=== PATIENT | male | born 1980 | race Caucasian/White ===

== ENCOUNTER → 2022-11-12 12:16 | Outpatient (CLI) | payer BC, SELFPAY ==
[2022-11-12 13:34] LABS: Hematocrit 46.2 % (41-53); Hemoglobin 16.1 g/dL (13.5-17.5); Mean Corpuscular HGB Conc 34.8 % (30-36); Mean Corpuscular Hemoglobin 30.3 PG (26-34); Platelet Count 292 X10^3/uL (150-400); Red Blood Cell Count 5.31 X10^6/uL (4.5-5.9); Red Cell Distribution Width 14.3 % (11.6-14.8); White Blood Cell Count 11.3 X10^3/uL (4.5-11.0)
[2022-11-12 13:41] LABS: Alanine Aminotransferase 44 IU/L (<50); Albumin 4.7 g/dL (3.5-5.0); Albumin Globulin Ratio 1.4 (1.0-2.8); Alkaline Phosphatase 94 U/L (38-126); Aspartate Aminotransferase 35 IU/L (17-59); BUN Creatinine Ratio 19.6 (6-22); Bilirubin Total 0.8 mg/dL (0.2-1.3); Blood Urea Nitrogen 19 mg/dL (9-20); Calcium 9.4 mg/dL (8.4-10.2); Carbon Dioxide 26 mmol/L (22-32); Chloride 102 mmol/L (98-107); Cholesterol 223 mg/dL (140-199); Estimated Glomerular Filt Rate > 60 mL/min (>60); Globulin 3.3 g/dL (1.7-4.1); Glucose 105 mg/dL (70-100); HDL Cholesterol 56 mg/dL (40-60); HEMOLYSIS < 15 (0-50); LDL Cholesterol Calculated 130 mg/dL (<100); Potassium 4.3 mmol/L (3.4-5.1); Sodium 136 mmol/L (137-145); Triglycerides 187 mg/dL (35-150)
[2022-11-12 13:45] LABS: High Sensitivity CRP - Cardiac 3.1 mg/L (1.0-3.0)
[2022-11-12 13:50] LABS: Neutrophils Absolute Manual 8362 /uL (3000-5900); Total Cells Counted 100
[2022-11-12 13:51] LABS: RBC Morphology Normal Morphology
== END ==
PROVIDERS: PCP Pediatrics; Referring Provider Pediatrics; Visit Provider Pediatrics
DX: E78.5 Hyperlipidemia, unspecified (principal); F41.9 Anxiety disorder, unspecified; R00.0 Tachycardia, unspecified; E78.00 Pure hypercholesterolemia, unspecified
CPT/HCPCS: 36415; 80053; 80061; 84443; 85025; 86140

== ENCOUNTER → 2023-05-02 14:15 | Outpatient (CLI) | payer BC, SELFPAY | PROVIDERS: PCP Pediatrics; Referring Provider Physician Assistant; Visit Provider Physician Assistant | DX: R06.2 Wheezing (principal); Z87.891 Personal history of nicotine dependence; J98.8 Other specified respiratory disorders | CPT/HCPCS: 94060; 94726; 94729 ==

== ENCOUNTER → 2023-05-16 13:40 | Outpatient (CLI) | payer BC, SELFPAY ==
--- NOTE | 2023-05-16 13:55 | DI.RAD.S_ITS ---
PROCEDURE: XR CHEST 2V INDICATIONS: eval former smoker TECHNIQUE: 2 views of the chest were acquired. COMPARISON: None. FINDINGS: Surgical changes and devices: None. Lungs and pleura: Lungs are clear. No pleural effusions or pneumothorax. Mediastinum: Mediastinal contours are normal. Heart size is normal. Bones and chest wall: No suspicious bony abnormalities. Soft tissues appear unremarkable. IMPRESSION: No acute cardiopulmonary abnormality is seen. Dictated by: Aracelis Reich M.D. on 05/16/2023 at 22:10 Approved by: Aracelis Reich M.D. on 05/16/2023 at 22:10
[2023-05-16 14:40] LABS: Add Manual Diff / Slide Review NO; Basophils Absolute Auto 0 /uL (0-100); Basophils Percent Auto 0.7 % (0-2); Eosinophils Absolute Auto 200 /uL (0-450); Eosinophils Percent Auto 3.4 % (2-4); Hematocrit 43.7 % (41-53); Hemoglobin 14.8 g/dL (13.5-17.5); Lymphocytes Absolute Auto 1900 /uL (1100-4500); Lymphocytes Percent Auto 28.3 % (25-40); Mean Corpuscular Hemoglobin 29.8 PG (26-34); Mean Corpuscular Volume 87.7 fL (80-100); Monocytes Absolute Auto 500 /uL (0-900); Monocytes Percent Auto 7.8 % (3-14); Neutrophils Absolute Auto 4000 /uL (1500-7000); Neutrophils Percent Auto 59.8 % (50-75); Platelet Count 255 X10^3/uL (150-400); Red Blood Cell Count 4.98 X10^6/uL (4.5-5.9); Red Cell Distribution Width 13.5 % (11.6-14.8); White Blood Cell Count 6.7 X10^3/uL (4.5-11.0)
[2023-05-16 15:08] LABS: Alanine Aminotransferase 47 IU/L (<50); Albumin 4.4 g/dL (3.5-5.0); Albumin Globulin Ratio 1.5 (1.0-2.8); Alkaline Phosphatase 78 U/L (38-126); Aspartate Aminotransferase 30 IU/L (17-59); BUN Creatinine Ratio 19.3 (6-22); Bilirubin Total 0.9 mg/dL (0.2-1.3); Blood Urea Nitrogen 17 mg/dL (9-20); Calcium 9.9 mg/dL (8.4-10.2); Carbon Dioxide 26 mmol/L (22-32); Chloride 103 mmol/L (98-107); Cholesterol 218 mg/dL (140-199); Estimated Glomerular Filt Rate > 60 mL/min (>60); Globulin 2.9 g/dL (1.7-4.1); Glucose 95 mg/dL (70-100); HDL Cholesterol 55 mg/dL (40-60); HEMOLYSIS < 15 (0-50); LDL Cholesterol Calculated 138 mg/dL (<100); Potassium 4.8 mmol/L (3.4-5.1); Sodium 135 mmol/L (137-145); Total Protein 7.3 g/dL (6.3-8.2); Triglycerides 126 mg/dL (35-150)
[2023-05-16 15:13] LABS: Hemoglobin A1C% w Est Avg Glu 5.6 % (4.0-6.0)
== END ==
PROVIDERS: PCP Family Medicine; Referring Provider Family Medicine; Visit Provider Family Medicine
DX: E78.00 Pure hypercholesterolemia, unspecified (principal); K57.31 Diverticulosis of large intestine without perforation or abscess with bleeding; R00.0 Tachycardia, unspecified
CPT/HCPCS: 36415; 71046; 80053; 80061; 83036; 85025

== ENCOUNTER → 2023-07-25 12:30 | Outpatient (CLI) | payer BC, SELFPAY ==
--- NOTE | 2023-07-25 12:30 | DI.RAD.S_ITS ---
PROCEDURE: FL UPPER GI SERIES INDICATIONS: eval GERD COMPARISON: [facility], CR, XR CHEST 2V, 05/16/2023, 15:14. 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 No suspicious abdominal calcifications. Visualized solid organ contours appear normal. Bony structures appear unremarkable. Esophagus: Esophageal mucosa is normal on air-contrast views. On single-contrast views, there is normal esophageal peristalsis. No strictures, extrinsic mass effects, or diverticula. Small sliding hiatal hernia. No gastroesophageal reflux elicited during the exam. There is normal transit of a calibrated barium tablet through the esophagus. Stomach: The stomach is normally distensible, with normal rugal fold thickness. No mucosal masses or ulcers. Pylorus and duodenal bulb appear normal in morphology. Duodenal folds are normal in thickness as well. IMPRESSION: 1. Small sliding hiatal hernia. 2. No gastroesophageal reflux was elicited joint exam. 3. Normal stomach and duodenum. Dictated by: Bossman Clark M.D. on 07/25/2023 at 14:59 Approved by: Bossman Clark M.D. on 07/25/2023 at 15:00
== END ==
PROVIDERS: PCP Family Medicine; Referring Provider Family Medicine; Visit Provider Family Medicine
DX: K21.9 Gastro-esophageal reflux disease without esophagitis (principal); K44.9 Diaphragmatic hernia without obstruction or gangrene
CPT/HCPCS: 74240